=== PATIENT | female | born 1975 | race Caucasian/White ===

== ENCOUNTER 2016-06-09 10:29 | Emergency (ER) | payer BC ==
[2016-06-09 10:54] VITALS: BP 147/84
--- NOTE | 2016-06-09 11:24 | UC ---
Headache HPI - HPI Summary HPI Summary: Headache and imbalance for about 2 days. no sudden hearing loss, tinnitus, fever , focal neuro deficits. NO blurry vision. - History Of Current Complaint Chief Complaint: UCRespiratory Stated Complaint: HEADACHE,DIZZY Hx Obtained From: Patient Hx Last Menstrual Period: pt had an ablasion and states not getting a mensses Onset/Duration: Gradual Onset, Lasting Days Onset Of Symptoms: Gradual Currently Pain Is: Mild Timing: Constant - waxing and waning. Location of Headache: Diffuse Aggravating Factor: Position Change Allevating Factors: Rest Associated Signs And Symptoms: Positive: Dizziness. Negative: Nausea, Vomiting , Sinus Pressure, Fever, Neck Pain, Neck Stiffness, Decreased LOC, Visual Changes Related History: Similar Episode/DX As: - she has had vertigo in the past. - Risk Factors Meningitis Risk Factors: Negative SDH Risk Factors: Negative - Allergies/Home Medications Allergies/Adverse Reactions: Allergies Allergy/AdvReac Type Severity Reaction Status Date / Time Penicillins Allergy Hives Verified 06/09/16 10:54 Home Medications: Home Medications Ibuprofen TAB* [Motrin TAB* 800 MG] 800 mg PO Q6H PRN 06/09/16 [History Confirmed 06/09/16] PMH/Surg Hx/FS Hx/Imm Hx - Additional Past Medical History Additional PMH: denies hx of cva, vascular disease. Endocrine History Of: Reports: Thyroid Disease - hypo Denies: Diabetes Cardiovascular History Of: Denies: Hypertension, Pacemaker/ICD Cancer History Of: Denies: Breast Cancer - Surgical History Surgical History: Yes Surgery Procedure, Year, and Place: UTERINE ABLATION - Family History Known Family History: Positive: None - no fh of cva, anuerysm. - Social History Alcohol Use: Rare Substance Use Type: None Smoking Status (MU): Heavy Every Day Tobacco Smoker Type: Cigarettes Amount Used/How Often: 1 pack per day Length of Time of Smoking/Using Tobacco: age 17 Have You Smoked in the Last Year: Yes Household Exposure Type: Cigarettes Review of Systems All Other Systems Reviewed And Are Negative: Yes Physical Exam Triage Information Reviewed: Yes Appearance: Well-Appearing, No Pain Distress, Well-Nourished, Obese Vital Signs: Initial Vital Signs Temp 98.6 F 06/09/16 10:48 Pulse 93 06/09/16 10:48 Resp 16 06/09/16 10:48 BP 147/84 06/09/16 10:48 Pulse Ox 98 06/09/16 10:48 Vital Signs Reviewed: Yes Eye Exam: Normal Eyes: Positive: Conjunctiva Clear. Negative: Conjunctiva Inflamed, Discharge ENT: Positive: Normal ENT inspection, Hearing grossly normal, Pharynx normal, TMs normal. Negative: Pharyngeal erythema, Nasal drainage, TM bulging, TM dull , TM red, Tonsillar swelling, Tonsillar exudate, Trismus, Muffled/hoarse voice Neck exam: Normal Neck: Positive: Supple, Nontender, No Lymphadenopathy. Negative: Nuchal Rigidity Respiratory: Positive: Chest non-tender, Lungs clear, Normal breath sounds, No respiratory distress, No accessory muscle use. Negative: Respiratory distress Cardiovascular: Positive: RRR, No Murmur, Pulses Normal. Negative: Tachycardia Abdomen Description: Positive: Nontender, No Organomegaly, Soft Musculoskeletal: Positive: Strength Intact Neurological Exam: Normal Neurological: Positive: Alert - CN III-XII intact. No nystagmus. Neg pronator drift. neg rhomberg. finger to nose and heel to kim intact. she is able to ambulate in the room without wide based gait. she can heel raise and toe raise without assistance. Psychological Exam: Normal Skin Exam: Normal Skin: Negative: rashes Headache Course/Dx - Course Course Of Treatment: vertigo and headache without any evidence to suggest cva or tumor. she will return to ent for any worsening. - Differential Dx/Diagnosis Differential Diagnosis/HQI/PQRI: CVA, TIA, Epidural Hematoma, Subdural Hematoma , Meningitis, Migraine, Sinus Headache, Subarachnoid Hemorrhage, Temporal Arteritis, Tension Headache, Viral Syndrome Provider Diagnoses: headache. vertigo. Discharge - Discharge Plan Condition: Good Disposition: HOME Prescriptions: Butalb/Acetamin/Caff TAB* [Fioricet TAB*] 1 tab PO Q6H PRN #12 tab MDD 2 PRN Reason: Headache Meclizine TAB* [Antivert 12.5 TAB*] 25 mg PO TID #20 tab Patient Education Materials: Vertigo (ED), General Headache (ED) Referrals: Levy Choe MD [Medical Doctor] -
== END 2016-06-09 11:32 | disposition home or self-care (01) ==
LOC: UCCORT 10:29
DX: R51 Headache (principal); R42 Dizziness and giddiness; R03.0 Elevated blood-pressure reading, without diagnosis of hypertension; Z88.0 Allergy status to penicillin; F17.210 Nicotine dependence, cigarettes, uncomplicated
CPT/HCPCS: 99212; G0463